=== PATIENT | female | born 1965 | race African-American/Black ===

== ENCOUNTER → 2019-12-02 | Outpatient (CLI) | payer BC ==
[2014-06-23 09:06] VITALS: BP 157/97
--- NOTE | 2019-12-02 13:17 | KCIC ---
Chest PA and lateral: Reason for examination: Cough. Comparison is made to previous study dated 06/23/2014. The heart size is normal. Mediastinum is unremarkable. Lung nolasco are clear. No acute bony abnormalities are seen. Impression: No acute cardiopulmonary disease. Electronically signed by: Maegan Robertson MD (12/02/2019 1:14 PM) [id number]
== END ==
LOC: KCIC 11:08
PROVIDERS: ATTEND Family Medicine
DX: R05 Cough (principal)
CPT/HCPCS: 71046